=== PATIENT | male | born 1955 ===

== ENCOUNTER 2017-10-23 13:08 | Day surgery (SDC) | payer OTHER ==
[2017-10-23 13:24] VITALS: BP 145/67; PULSE 96; RESP 16; TEMP 99.5; O2SAT 95
--- NOTE | 2017-10-23 15:15 | RADRPT ---
EXAM DATE: 10/23/2017 2:51 PM EDT AGE/SEX: 62 years / Male INDICATIONS: Abnormal lymph node on PET scan. CLINICAL DATA: This is the patient's initial encounter. Patient reports that signs and symptoms have been present for 2 weeks and indicates a pain score of 0/10. Location: Laterality: MEDICAL/SURGICAL HISTORY: . Prostate cancer. Appendectomy. Splenectomy. Right knee surgery. COMPARISON: No prior exams available for comparison. FINDINGS: The patient was sent for ultrasound-guided core biopsy of a hypermetabolic right groin lymph node whi ch was identified on recent PET/CT scan. Two right groin lymph nodes were confirmed sonographically. Both of these lymph nodes demonstrate normal fatty traci and thin cortices and are not particularly rmaírez spicious in appearance sonographically. One of the lymph nodes measures 2.7 x 0.8 cm and the other ly mph node measures 1.8 x 1.0 cm. Unfortunately, it is difficult to confirm which one of these lymph no brigida coincides with the lymph node which demonstrated hypermetabolism on recent PET/CT scan. Therefore , it is recommended that the suspicious lymph node identified on the recent PET/CT scan could be biop sied with CT-guided core biopsy so that the hypermetabolic lymph node can be sampled without question . These findings were discussed with the patient who understands the findings and the reason for re-s cheduling with CT-guidance. Despite efforts to transfer the patient to the CT scanner for CT guided b iopsy today, this procedure could not be performed due to scheduling conflict. CONCLUSION: 1. Ultrasound guided right groin lymph node biopsy was not performed as described above. Re-schedule to biopsy with CT-guidance is recommended if this is still needed. Electronically signed by: Eliseo Velásquez MD 10/23/2017 3:14 PM EDT
== END 2017-10-23 14:46 | disposition home or self-care (01) ==
LOC: HRAD 13:08 → HRIP 13:09 → HRAD 14:46
PROVIDERS: ATTEND Surgery
DX: R59.0 Localized enlarged lymph nodes (principal); Z85.46 Personal history of malignant neoplasm of prostate
CPT/HCPCS: 76999